=== PATIENT | male | born 1965 | race Caucasian/White ===

== ENCOUNTER 2016-10-27 10:14 | Emergency (ER) | payer BC ==
[~2016-10-27] VITALS: Ht 188 cm; Wt 111.3 kg
[~2016-10-27 10:14] MED LIST: EPIPEN ADU0.3 MG/0.3 IM; FENOFIBRATE160 M1 PO; GLIMEPIRIDE1 MG PO; JANUMET 50/11 TABLET PO; JANUMET 50/51 TABLET PO; LISINOPRIL5 MG PO; MOTRIN600 MG PO; OXAYDO5 MG PO; PREDNISONE20 MG PO; VALIUM5 MG PO
[2016-10-27 10:49] LABS: EOSINOPHIL (%) 3.9 % (0-5); EOSINOPHIL COUNT 0.2 K/uL (0-0.3); IMMATURE GRANULOCYTE (%) 0.5 % (0.0-0.7); INSTRUMENT ABS NEUTROPHIL CT 2.4 K/uL; LYMPHOCYTE COUNT 0.8 K/uL (1.0-2.8); MCH 31.5 PG (29.0-34.0); MCHC 34.8 G/DL (30.0-36.0); MCV 90.7 FL (86-99); MEAN PLAT.VOLUME 9.8 uM^3 (9.0-12.4); MONOCYTE COUNT 0.5 K/uL (0-0.8); NEUTROPHIL (%) 63.3 % (45-76); NEUTROPHIL COUNT 2.4 K/uL (1.8-6.4); PLATELET COUNT 201 K/uL (156-360); RBC DIS.WIDTH-CV 11.9 % (11.8-14.6); RED BLOOD COUNT 4.41 M/uL (4.00-5.50); WHITE BLOOD COUNT 3.8 K/uL (4.1-10.2)
[2016-10-27 11:00] LABS: CHLORIDE 101 mEq/L (99-109); POTASSIUM 4.4 mEq/L (3.7-5.4); SODIUM 139 mEq/L (136-147)
[2016-10-27 11:02] LABS: GLUCOSE 236 mg/dL (70-99)
[2016-10-27 11:04] LABS: ANION GAP 11 MEQ/L (2-14)
[2016-10-27 11:06] LABS: GFR ESTIMATE (CALCULATED) > 59 mL/min/
[2016-10-27 11:07] LABS: UREA NITROGEN (BUN) 15 mg/dL (9-23)
[2016-10-27 11:09] LABS: TROP-I INTERPRETATION NEGATIVE; TROPONIN-I < 0.01 ng/mL (0.0-0.30)
[2016-10-27] MEDS ORDERED: MEDROL DOSEPAK4 MG PO (11:33)
[2016-10-27 11:40] VITALS: BP 133/74
== END 2016-10-27 11:58 | disposition home or self-care (01) ==
LOC: EME 10:14
PROVIDERS: Emergency Medicine
DX: G51.0 Bell's palsy (principal); I10 Essential (primary) hypertension; E78.5 Hyperlipidemia, unspecified; E11.9 Type 2 diabetes mellitus without complications; Z79.84 Long term (current) use of oral hypoglycemic drugs
CPT/HCPCS: 70450; 71010; 80048; 84484; 85025; 93005; 99281; 99285; J7512

== ENCOUNTER 2017-07-18 03:38 | Emergency (ER) | payer BC ==
[~2017-07-18] VITALS: Ht 188 cm; Wt 113.0 kg
[~2017-07-18 03:38] MED LIST changes: +MEDROL DOSEPAK4 MG PO
[2017-07-18] MEDS ORDERED: TOBREX5 ML BOTH EYES (04:45)
[2017-07-18 05:03] VITALS: BP 125/96
== END 2017-07-18 05:03 | disposition home or self-care (01) ==
LOC: EME 03:38
DX: H10.9 Unspecified conjunctivitis (principal); Z88.8 Allergy status to other drugs, medicaments and biological substances
CPT/HCPCS: 99281; 99283